=== PATIENT | female | born 1940 | race Caucasian/White ===

== ENCOUNTER 2017-02-19 13:42 | Emergency (ER) | payer MEDICARE ==
[2017-02-19 13:53] VITALS: BP 133/72; PULSE 83; RESP 16; TEMP 97
--- NOTE | 2017-02-19 14:21 | XR ---
EXAMINATION TYPE: XR knee complete RT DATE OF EXAM: 02/19/2017 2:17 PM CLINICAL HISTORY: pain TECHNIQUE: Three views of the right knee are obtained. COMPARISON: None. FINDINGS: There is no acute fracture/dislocation. The tri-compartment joint spaces appear moderatel y narrowed. Meniscal chondrocalcinosis noted. Mild spur formation seen. The overlying soft tissue fareed ears unremarkable. IMPRESSION: There is no acute fracture or dislocation.ICD 10 NO FRACTURE, INITIAL EVALUATION
--- NOTE | 2017-02-19 14:42 | ED ---
Fall HPI - General Chief Complaint: Fall Stated Complaint: Fall yesterday Rt knee and face Time Seen by Provider: 02/19/17 14:34 Source: patient, RN notes reviewed Mode of arrival: ambulatory - History of Present Illness Initial Comments: 76-year-old female presents emergency Department with chief complaint of fall. She states that she tripped over an uneven sidewalk. She states her is about a 2 inch elevation. She states she fell forward and has some abrasions to her hands but complaint of right knee pain, facial abrasion. Patient states she didn't bite her upper lip with her teeth but states she does not feel any loose dentition. She states that she had some minor bleeding. Her tetanus is up-to- date. Patient states she had very minimal pain of her nose denies any headache , dizziness, blurred vision. Denies any neck or back pain at this time. She states she has full range of motion of her wrist and minimally tender. Patient states it is very painful to walk on her right knee though. - Related Data Home Medications Medication Instructions Recorded Confirmed Aspirin [Adult Low Dose Aspirin EC] 81 mg PO DAILY 09/26/16 02/19/17 Atorvastatin [Lipitor] 20 mg PO DIRECTED 09/26/16 02/19/17 Cholecalciferol [Vitamin D3] 1,000 unit PO DAILY 09/26/16 02/19/17 Cyanocobalamin (Vitamin B-12) 2,000 mcg PO DAILY 09/26/16 02/19/17 [Vitamin B-12] Ibuprofen [Advil] 200 mg PO Q8HR PRN 09/26/16 02/19/17 Potassium Chloride [Klor-Con 20] 20 meq PO DIRECTED 09/26/16 02/19/17 Triamterene-Hctz 37.5-25Mg 1 cap PO DAILY 09/26/16 02/19/17 [Dyazide 37.5-25 Capsule] amLODIPine [Norvasc] 5 mg PO HS 09/26/16 02/19/17 Acetaminophen Tab [Tylenol Tab] 325 mg PO Q4H PRN 10/04/16 02/19/17 Allergies Allergy/AdvReac Type Severity Reaction Status Date / Time No Known Allergies Allergy Verified 02/19/17 13:53 Review of Systems ROS Statement: Those systems with pertinent positive or pertinent negative responses have been documented in the HPI. ROS Other: All systems not noted in ROS Statement are negative. Past Medical History Past Medical History: Hyperlipidemia, Hypertension, Osteoarthritis (OA), Sleep Apnea/CPAP/BIPAP History of Any Multi-Drug Resistant Organisms: None Reported Past Surgical History: Hysterectomy Additional Past Surgical History / Comment(s): Colonoscopy Past Anesthesia/Blood Transfusion Reactions: No Reported Reaction Past Psychological History: No Psychological Hx Reported Smoking Status: Never smoker Past Alcohol Use History: Rare Past Drug Use History: None Reported - Past Family History Father Family Medical History: Cancer General Exam Limitations: no limitations General appearance: alert, in no apparent distress Head exam: Present: atraumatic, normocephalic, normal inspection Eye exam: Present: normal appearance, PERRL, EOMI. Absent: scleral icterus, conjunctival injection, periorbital swelling ENT exam: Present: normal oropharynx, mucous membranes moist, TM's normal bilaterally, normal external ear exam. Absent: normal exam (Small abrasion noted on the nasal bridge with no tenderness) Neck exam: Present: normal inspection, full ROM. Absent: tenderness, meningismus, lymphadenopathy Respiratory exam: Present: normal lung sounds bilaterally. Absent: respiratory distress, wheezes, rales, rhonchi, stridor Cardiovascular Exam: Present: regular rate, normal rhythm, normal heart sounds. Absent: systolic murmur, diastolic murmur, rubs, gallop, clicks Extremities exam: Present: other (Bilateral wrists and hands neurovascular intact full range of motion minimal tenderness there is small abrasion noted no obvious deformity right knee there is tenderness along the patella and inferior to the patella with mild swelling no ecchymosis no abrasion patient full range of motion no laxity) Back exam: Present: full ROM. Absent: tenderness Neurological exam: Present: alert, oriented X3, CN II-XII intact, reflexes normal. Absent: motor sensory deficit Course Vital Signs 02/19/17 13:48 Temperature 97.0 F L Pulse Rate 83 Respiratory 16 Rate Blood Pressure 133/72 O2 Sat by Pulse 99 Oximetry Medical Decision Making - Medical Decision Making 76-year-old female presented for fall. Patient has no acute fracture or knee she had multiple contusions and abrasions. Patientto head injury. Patient be discharged at this time return parameters were discussed. Disposition Clinical Impression: Fall, Nasal contusion, Knee contusion, Abrasion hand Disposition: HOME SELF-CARE Condition: Stable Instructions: Contusion in Adults (ED) Additional Instructions: Please return to the Emergency Department if symptoms worsen or any other concerns. Referrals: Martina Perez DO [Primary Care Provider] - 1-2 days Time of Disposition: 14:41
== END 2017-02-19 14:47 | disposition home or self-care (01) ==
LOC: EC 13:42
DX: S80.01XA Contusion of right knee, initial encounter (principal); S00.33XA Contusion of nose, initial encounter; S60.512A Abrasion of left hand, initial encounter; S60.511A Abrasion of right hand, initial encounter; I10 Essential (primary) hypertension; E78.5 Hyperlipidemia, unspecified; M19.90 Unspecified osteoarthritis, unspecified site; Z79.82 Long term (current) use of aspirin; Z79.899 Other long term (current) drug therapy; W01.0XXA Fall on same level from slipping, tripping and stumbling without subsequent striking against object, initial encounter; Y92.480 Sidewalk as the place of occurrence of the external cause
CPT/HCPCS: 99283

== ENCOUNTER → 2017-10-03 | Outpatient (CLI) | payer MEDICARE ==
--- NOTE | 2017-10-04 13:34 | MM ---
Reason for exam: screening (asymptomatic). Last mammogram was performed 1 year ago. History: Patient is postmenopausal. Took hormonal contraceptives for 2 years. Physical Findings: A clinical breast exam by your physician is recommended on an annual basis and results should be correlated with mammographic findings. MG 3D Screening Mammo W/Cad Bilateral CC and MLO view(s) were taken. Prior study comparison: September 21, 2016, mammogram, performed at [facility]. September 19, 2015, mammogram, performed at [facility]. There are scattered fibroglandular densities. No suspicious abnormality. No significant changes when compared with prior studies. ASSESSMENT: Negative, BI-RAD 1 RECOMMENDATION: Routine screening mammogram of both breasts in 1 year.
== END | disposition home or self-care (01) ==
LOC: RADMAMWWP 12:23
PROVIDERS: ATTEND Family Medicine
DX: Z12.31 Encounter for screening mammogram for malignant neoplasm of breast (principal)
CPT/HCPCS: 77063; G0202

== ENCOUNTER → 2018-07-30 | Outpatient (CLI) | payer MEDICARE ==
--- NOTE | 2018-07-30 22:17 | MR ---
EXAMINATION TYPE: MR lumbar spine wo con DATE OF EXAM: 07/30/2018 COMPARISON: NONE HISTORY: Sciatica, unspecified side per order, pain in lower back and both legs x8 months per patient . TECHNIQUE: Multiplanar, multisequence imaging of the lumbar spine is performed without IV contrast. FINDINGS: Sagittal images of the lumbar spine show vertebral body heights and alignment to appear sat isfactory. Multilevel disc desiccation is present. There is multilevel moderate to advanced disc spac e narrowing. Multilevel small posterior disc herniations are seen on sagittal images. The conus medul jenni is normal in position and signal ending at mid L1 level. Heterogeneous predominantly Modic type II endplate changes with moderate multilevel anterior spurring is present, scattered small hemangiom as are also noted. Axial images at the T12-L1 level is felt to appear within normal limits. Axial images at L1-L2 level shows mild/moderate broad-based posterior disc protrusion mildly effacing the anterior thecal sac and causing moderate left and mild right-sided neural foraminal narrowing. Axial images at the L2-L3 level mild/moderate broad-based disc bulge mildly effacing the anterior the andrea sac and causing mild bilateral anterior inferior neural foraminal narrowing. Axial images at the L3-L4 level shows mild to moderate right greater than left facet degenerative ubaldo nge and ligament flavum hypertrophy with mild to moderate broad-based posterior disc protrusion mildl y effacing the anterior thecal sac and causing moderate to advanced right and mild to moderate left-s ided neural foraminal narrowing. Encroachment of right L3 nerve is suspected on axial image 14 and sa gittal image 11. Axial images at L4-L5 level shows moderate facet degenerative changes and ligamentum flavum hypertrop hy. There is prominence of epidural fat at this level. There is broad disc bulge with central disc pr otrusion seen. There is moderate to severe bilateral neural foraminal narrowing at this level noted. Axial images at L5-S1 level shows moderate facet degenerative changes bilaterally. There is broad-bas ed disc bulge seen but spinal canal is more prominent with diminished epidural fat. There is mild to moderate bilateral neural foraminal narrowing at this level. There are suspected prominent parapelvic cysts centrally in both kidneys and partial visualization of greater than 1 cm cystic lesion upper right pelvis axial image 2. IMPRESSION: 1. Multilevel degenerative changes in the lumbar spine as detailed above. Some epidural lipomatosis n oted lower lumbar levels. 2. Partial visualization of greater than 1 cm cystic upper right pelvis lesion presumed right ovarian in etiology, this is abnormal finding in postmenopausal female and further investigation with pelvic ultrasound is advised.
== END | disposition home or self-care (01) ==
LOC: RADMRIMAIN 15:01
PROVIDERS: ATTEND Family Medicine
DX: M48.061 Spinal stenosis, lumbar region without neurogenic claudication (principal); M99.73 Connective tissue and disc stenosis of intervertebral foramina of lumbar region; M99.74 Connective tissue and disc stenosis of intervertebral foramina of sacral region; M51.27 Other intervertebral disc displacement, lumbosacral region; M47.817 Spondylosis without myelopathy or radiculopathy, lumbosacral region
CPT/HCPCS: 72148

== ENCOUNTER → 2019-06-10 | Outpatient (CLI) | payer MEDICARE ==
--- NOTE | 2019-06-11 11:01 | MM ---
Reason for exam: screening (asymptomatic). Last mammogram was performed 1 year and 8 months ago. History: Patient is postmenopausal. Took hormonal contraceptives for 2 years. Physical Findings: A clinical breast exam by your physician is recommended on an annual basis and results should be correlated with mammographic findings. MG 3D Screening Mammo W/Cad Bilateral CC and MLO view(s) were taken. Prior study comparison: October 03, 2017, bilateral MG 3d screening mammo w/cad. September 21, 2016, mammogram, performed at [facility]. The breast tissue is heterogeneously dense. This may lower the sensitivity of mammography. Benign appearing bilateral calcifications. New 3mm group of calcifications 5.5cm from nipple in the central upper right breast at middle depth. No suspicious abnormality. ASSESSMENT: Incomplete: need additional imaging evaluation, BI-RAD 0 RECOMMENDATION: Special view mammogram of the right breast. [facility] will attempt to contact patient to return for supplemental views.
== END | disposition home or self-care (01) ==
LOC: RADMAMWWP 10:53
PROVIDERS: ATTEND Family Medicine
DX: Z12.31 Encounter for screening mammogram for malignant neoplasm of breast (principal)
CPT/HCPCS: 77063; 77067

== ENCOUNTER → 2019-06-26 | Outpatient (CLI) | payer MEDICARE ==
--- NOTE | 2019-06-29 09:39 | MM ---
Reason for exam: additional evaluation requested from abnormal screening. Last mammogram was performed 1 month ago. History: Patient is postmenopausal and history of other cancer. Took hormonal contraceptives for 2 years. Physical Findings: Nurse did not find any significant physical abnormalities on exam. MG 3D Work Up W/Cad RT CC with magnification, LM with magnification, and LM view(s) were taken of the right breast. Prior study comparison: June 10, 2019, bilateral MG 3d screening mammo w/cad. October 03, 2017, bilateral MG 3d screening mammo w/cad. Finding: There are grouped/clustered, fine calcifications in the middle position of the right breast. New finding since October 03, 2017. These results were verbally communicated with the patient and result sheet given to the patient on 06/26/19. ASSESSMENT: Suspicious, BI-RAD 4 RECOMMENDATION: Stereotactic core biopsy of the right breast. Called Dr. Perez with mammographic findings and has scheduled an appointment for the patient for 07/23/19 at 4:[address] Bourgeois. Biopsy scheduled for 08/06/19 at 8:00. PRELIMINARY REPORT CALLED AND FAXED TO DR. BOURGEOIS ON 06/26/19.
== END | disposition home or self-care (01) ==
LOC: RADMAMWWP 14:56
PROVIDERS: ATTEND Family Medicine
DX: R92.8 Other abnormal and inconclusive findings on diagnostic imaging of breast (principal)
CPT/HCPCS: 77065; G0279; 77061

== ENCOUNTER → 2019-07-23 | Outpatient (CLI) | payer MEDICARE ==
[2019-07-23 16:04] VITALS: BP 119/72; PULSE 87; RESP 18; TEMP 97.9; BMI 32.8
--- NOTE | 2019-07-23 16:30 | P.GSHP ---
History of Present Illness H&P Date: 07/23/19 Chief Complaint: mammographic abnormality right breast Blanca is a 79-year-old white female who had a routine screening mammogram performed on 9419. She was called back to have additional views [place] [address]. A group of fine calcifications in the middle position of the right breast were noted. These were felt to be suspicious and stereotactic core biopsy was recommended. The patient does not feel anything of concern in her breasts. She has no history of any trauma or infection in the breast. She has no complaints of any lumps or masses in her breasts. No abnormal nipple discharge. Family history: 1. father: skin melanoma and bony cancer 2. patient: skin cancer, basal and SCC 3. maternal cousin: breast cancer Hormonal History: menarche: 14 , 1 miscarriage breast fed: none age at first : 20 menopause: hysterectomy left one ovary, no cancer BCP: 4 years hormones: 2 years Surgical history: 1. Hysterectomy 1 ovary removed one left medical history: 1. HTN 2. high cholesterol 3. arthritis Social history: Smoke: Negative: Alcohol: Occasional Drugs: Negative - Constitutional Constitutional: Denies chills, Denies fever - EENT Comment: wears glasses Ears: deny: decreased hearing, tinnitus Ears, nose, mouth and throat: Denies headache, Denies sore throat - Breasts Breasts: bilateral: as per HPI - Cardiovascular Cardiovascular: Reports high blood pressure, Denies chest pain, Denies shortness of breath - Respiratory Respiratory: Denies cough, Denies 7 - Gastrointestinal Gastrointestinal: Denies abdominal pain, Denies diarrhea, Denies nausea, Denies vomiting - Genitourinary (Female) Genitourinary: Denies dysuria, Denies hematuria - Menstruation Menstruation: Reports post hysterectomy - Musculoskeletal Comment: arthritis - Integumentary Integumentary: Denies pruritus, Denies rash - Neurological Neurological: Denies numbness, Denies weakness - Psychiatric Psychiatric: Denies anxiety, Denies depression - Endocrine Endocrine: Denies fatigue, Denies weight change - Hematologic/Lymphatic Comment: baby aspirin - Allergic/Immunologic Allergic/Immunologic: Reports as per HPI Past Medical History Past Medical History: Hyperlipidemia, Hypertension, Osteoarthritis (OA), Sleep Apnea/CPAP/BIPAP History of Any Multi-Drug Resistant Organisms: None Reported Past Surgical History: Hysterectomy Additional Past Surgical History / Comment(s): Colonoscopy Past Anesthesia/Blood Transfusion Reactions: No Reported Reaction Past Psychological History: No Psychological Hx Reported Smoking Status: Never smoker Past Alcohol Use History: Rare Past Drug Use History: None Reported - Past Family History Father Family Medical History: Cancer Medications and Allergies Home Medications Medication Instructions Recorded Confirmed Type Aspirin [Adult Low Dose Aspirin EC] 81 mg PO DAILY 09/26/16 07/23/19 History Atorvastatin [Lipitor] 20 mg PO DIRECTED 09/26/16 07/23/19 History Cholecalciferol [Vitamin D3] 1,000 unit PO DAILY 09/26/16 07/23/19 History Cyanocobalamin (Vitamin B-12) 2,000 mcg PO DAILY 09/26/16 07/23/19 History [Vitamin B-12] Ibuprofen [Advil] 200 mg PO Q8HR PRN 09/26/16 07/23/19 History Potassium Chloride [Klor-Con 20] 20 meq PO DIRECTED 09/26/16 07/23/19 History amLODIPine [Norvasc] 10 mg PO HS 09/26/16 07/23/19 History Acetaminophen Tab [Tylenol Tab] 325 mg PO Q4H PRN 10/04/16 07/23/19 History Amoxicillin 500 mg PO QID 07/23/19 07/23/19 History Losartan/Hydrochlorothiazide 1 tab PO DAILY 07/23/19 07/23/19 History [Losartan-Hctz 100-25 mg Tab] Allergies Allergy/AdvReac Type Severity Reaction Status Date / Time No Known Allergies Allergy Verified 07/23/19 16:03 Surgical - Exam Vital Signs Temp Pulse Resp BP Pulse Ox 97.9 F 87 18 119/72 95 07/23/19 16:00 07/23/19 16:00 07/23/19 16:00 07/23/19 16:00 07/23/19 16:00 BMI 32.9 - General well developed, well nourished, no distress - Eyes normal ocular movement, no icteric - ENT no hearing loss, no congestion - Neck no masses, trachea midline - Respiratory normal expansion, normal respiratory effort, clear to auscultation - Cardiovascular Rhythm: regular Heart Sounds: normal: S1, S2 - Abdomen Abdomen: soft, non tender, no guarding, no rigid, no rebound - Integumentary ormal turgor - Neurologic no disoriented, no combative - Musculoskeletal normal gait, normal posture - Psychiatric oriented to time, oriented to person, oriented to place, speech is normal, memory intact Breast examination: Right breast: Multi-positional exam fibrocystic changes no dominant masses or nodules of concern Right axilla: No adenopathy of concern Left breast: Multiple positional exam no dominant masses or nodules of concern Left axilla: No adenopathy of concern Results Mammogram results reviewed Assessment and Plan Assessment: Impression: 1. HTN 2. high cholesterol 3. arthritis 4. Fibrocystic breast changes 5. Mammographic abnormality right breast 6. Family history of breast cancer 7. Family history of cancer Plan: 1. Stereotactic core biopsy right breast 2. Medical management of medical conditions Blanca had an infection near a left posterior molar. She has been seen by a dentist lanced it and put on an antibiotic. She states she is going for suture removal next week and she will be completed with her antibiotics. We have talked about if this is active infection would consider postponing the core biopsy. Additionally we have talked about stopping her baby aspirin which she will do a week prior to the procedure. Risks and benefits of procedure discussed with the patient and she wishes to proceed. Cc:Dr. Perez
== END | disposition home or self-care (01) ==
LOC: WWCWWP 15:52
PROVIDERS: ATTEND Surgery
DX: Z53.9 Procedure and treatment not carried out, unspecified reason (principal)

== ENCOUNTER → 2019-08-06 | Day surgery (SDC) | payer MEDICARE ==
[2019-08-06 07:24] VITALS: RESP 16; BMI 32.3
--- NOTE | 2019-08-06 08:32 | P.OP ---
Date of Procedure: 08/06/19 Preoperative Diagnosis: Mammographic abnormality right breast Postoperative Diagnosis: same Procedure(s) Performed: Right breast stereotactic core biopsy Anesthesia: local Surgeon: Siria Delaney Estimated Blood Loss (ml): 0.02 Pathology: other (Breast tissue) Condition: stable Disposition: same day Indications for Procedure: right breast grouped clustered fine calcifications in the middle position Operative Findings: Calcifications noted in specimen Description of Procedure: The patient is a 79-year-old white female who on a mammogram was noted to have fine group/clustered calcifications in the middle position of the right breast. The patient was recommended to undergo stereotactic core biopsy. Risks and benefits of the procedure were discussed with the patient and she wished to proceed. The patient was taken to the stereotactic core room. She was positioned on the low. Table and a showcase trimmer film was obtained. The views were obtained in the CC from above position. The area of concern was identified. The patient was targeted. The breast was prepped using Betadine. 20 mL of 1% lidocaine were used to anesthetize the area. Needle which was a 9-gauge vacuum-assisted core biopsy needle was driven to the correct coordinates. The needle was fired. Post fire films were obtained. The needle was noted to be in the correct location. 5 core biopsies were obtained. The 12 o'clock position. Radiograph of the specimen revealed that the area of concern had been sampled with calcifications in the specimen. A Top-Hat secure kait clip was placed for localization. The patient tolerated the procedure in stable condition. The specimen was sent to pathology. Cc: Dr. Martina Perez
[2019-08-06 08:34] VITALS: BP 131/71; PULSE 59; TEMP 98.1
--- NOTE | 2019-08-06 16:32 | MM ---
EXAMINATION TYPE: MG stereo VAD BX RT DATE OF EXAM: 08/06/2019 COMPARISON: 06/10/2019 and 06/26/2019 CLINICAL HISTORY: 79-year-old female with right breast microcalcifications TECHNIQUE: Stereotactic guided core biopsy of the right breast. FINDINGS: The procedure of stereotactic guided core biopsy was explained to the patient. Benefits, alternatives, and risks were discussed. An informed consent was then obtained. The shortness pathway for biopsy was chosen. Shortness pathway was a superior approach. I performed the localization, then surgeon, Dr. Jose Armando Romero performed the remainder of the procedure. A vacuum assisted biopsy gun was used to obtain multiple core samples. The patient tolerated the procedure well without any immediate complication. The patient was kept in the radiology department for short stay after the procedure and then discharged home in stable condition. Targeted calcifications are identified in specimen mammogram. Post biopsy mammogram shows the clip to appear in satisfactory position relative to the targeted area of concern on the preprocedure images. IMPRESSION: SUCCESSFUL, UNCOMPLICATED STEREOTACTIC GUIDED CORE BIOPSY OF CENTRAL 12:00 RIGHT BREAST MICROCALCIFICATIONS. LOW TO INTERMEDIATE SUSPICION. FULL PATHOLOGY RESULTS TO FOLLOW. Pathology Results: Benign RIGHT BREAST, STEREOTACTIC NEEDLE CORE BIOPSY: Fibrocystic changes including cysts with intraluminal calcium oxalate crystals and fibrosis. Recommendation Follow up mammogram of the right breast in 6 months. AIMEE
== END | disposition home or self-care (01) ==
LOC: RADMAMWWP 07:01
PROVIDERS: ATTEND Surgery
DX: N60.11 Diffuse cystic mastopathy of right breast (principal)
CPT/HCPCS: 88305; 19081; A4648; J2001

== ENCOUNTER → 2019-08-21 | Outpatient (CLI) | payer MEDICARE ==
[2019-08-21 10:48] VITALS: BP 126/68; PULSE 62; RESP 18; TEMP 97.6; BMI 31.8
--- NOTE | 2019-08-21 10:59 | P.PN ---
Subjective Progress Note Date: 08/21/19 Principal diagnosis: results of sterocore biopsy The patient is a 79-year-old white female status post a right stereotactic core biopsy on 103 119. Pathology revealed fibrocystic changes including cyst with intraluminal calcium crystals and fibrosis. It was felt that this was concordant with the area of concern. The patient post procedure has no complaints. She is doing well. Objective - Vital Signs Vital signs: Vital Signs Temp 97.6 F 08/21/19 10:46 Pulse 62 08/21/19 10:46 Resp 18 08/21/19 10:46 BP 126/68 08/21/19 10:46 Pulse Ox 97 08/21/19 10:46 Intake & Output 08/20/19 08/21/19 08/21/19 18:59 06:59 18:59 Weight 78.925 kg - Exam BMI 31.8 - Constitutional General appearance: Present: obese - EENT Eyes: Present: EOMI ENT: Present: hearing grossly normal - Neck Neck: Present: normal ROM - Respiratory Respiratory: bilateral: CTA - Cardiovascular Rhythm: regular Heart sounds: normal: S1, S2 - Integumentary Integumentary: Present: normal turgor - Musculoskeletal Musculoskeletal: Present: gait normal - Psychiatric Psychiatric: Present: A&O x's 3, appropriate affect - Additional findings Additional findings: Right breast biopsy site clean and dry No evidence of infection No ecchymosis or hematoma Assessment and Plan Assessment: Impression: 1. Patient status post right breast stereotactic core biopsy pathology benign this is concordant Plan: 1. Right breast mammogram in 6 months time with physician exam at that time 2. Will follow with bilateral mammogram and normal interval which would be June 2020. CC: Dr. Perez
== END ==
LOC: WWCWWP 10:35
PROVIDERS: ATTEND Surgery
DX: Z53.9 Procedure and treatment not carried out, unspecified reason (principal)

== ENCOUNTER → 2019-09-19 | Outpatient (CLI) | payer MEDICARE ==
[2019-09-19 11:00] LABS: HCT 40.3 % (34.0-46.0); HGB 13.1 gm/dL (11.4-16.0); MCH 31.1 pg (25.0-35.0); MCHC 32.6 g/dL (31.0-37.0); MCV 95.6 fL (80.0-100.0); Mean Platelet Volume 6.7; Platelet Count 299 k/uL (150-450); RBC 4.22 m/uL (3.80-5.40); RDW 12.6 % (11.5-15.5); WBC 5.9 k/uL (3.8-10.6)
[2019-09-19 12:54] LABS: Erythrocyte Sedimentation Rate 12 mm/hr (0-20)
[2019-09-19 17:24] LABS: African American GFR (CKD) 96.2 (60.0-200.0); Albumin 4.1 g/dL (3.80-4.90); Albumin/Globulin Ratio 2.05 (1.60-3.17); Anion Gap 10.4 mmol/L (4.00-12.00); C Reactive Protein 0.6 mg/dL (0.0-0.8); Calcium 9.5 mg/dL (8.7-10.3); Carbon Dioxide 26.6 mmol/L (21.6-31.8); Potassium 4.1 mmol/L (3.5-5.5); Total Bilirubin 0.6 mg/dL (0.3-1.2); Total Protein 6.1 g/dL (6.2-8.2)
[2019-09-21 11:02] LABS: Gliadin AB IgA, Deaminated NEGATIVE (NEGATIVE); Gliadin AB IgA, Unit <0.2 U/mL; Gliadin AB IgG, Deaminated NEGATIVE (NEGATIVE)
== END | disposition home or self-care (01) ==
LOC: LABWHC1 10:27
PROVIDERS: ATTEND Nurse Practitioner
DX: K52.9 Noninfective gastroenteritis and colitis, unspecified (principal)
CPT/HCPCS: 36415; 80053; 83516; 83630; 83993; 85027; 85652; 86140; 87045; 87046; 87328; 87329

== ENCOUNTER → 2020-06-27 | Outpatient (CLI) | payer MEDICARE ==
--- NOTE | 2020-06-27 13:59 | MM ---
Reason for exam: additional evaluation requested from prior study. Last mammogram was performed 1 year ago. History: Patient is postmenopausal and history of other cancer. Benign MG stereo VAD BX RT of the right breast, August 06, 2019. Took hormonal contraceptives for 2 years. Physical Findings: Nurse did not find any significant physical abnormalities on exam. MG 3D Diag Mammo W/Cad GENNY Bilateral CC and MLO view(s) were taken. Prior study comparison: June 26, 2019, right breast MG 3d work up w/cad RT. June 10, 2019, bilateral MG 3d screening mammo w/cad. There are scattered fibroglandular densities. Previous mammotome biopsy in the right breast. There is chronic nodularity in the left breast anterior superior position. Stable benign vascular calcifications. Subareolar asymmetric density left MLO view disperses on spot 3D. No significant new findings when compared with previous films. These results were verbally communicated with the patient and result sheet given to the patient on 06/27/20. ASSESSMENT: Negative, BI-RAD 1 RECOMMENDATION: Routine screening mammogram of both breasts in 1 year.
== END | disposition home or self-care (01) ==
LOC: RADMAMWWP 12:52
PROVIDERS: ATTEND Surgery
DX: R92.8 Other abnormal and inconclusive findings on diagnostic imaging of breast (principal)
CPT/HCPCS: 77066; G0279; 77062

== ENCOUNTER 2021-01-19 12:54 | Day surgery (SDC) | payer MEDICARE ==
[2021-01-19] MEDS ORDERED: ALPRAZolam 0.25 MG TAB PO PRN (13:16)
[2021-01-19 13:36] VITALS: PULSE 78; TEMP 97.7
[2021-01-19 14:45] VITALS: BP 123/66; RESP 18
--- NOTE | 2021-01-19 15:01 | US ---
EXAMINATION TYPE: US FNA thyroid first lesion DATE OF EXAM: 01/19/2021 COMPARISON: NONE HISTORY: Thyroid nodule right lobe thyroid gland. Maximal barrier technique was utilized. After informed consent, skin overlying the lobe thyroid nodu le was localized with ultrasound and the overlying skin prepped and draped. Ultrasound was utilized u sing sterile technique. Lidocaine was used for local anesthesia. Five passes with a 25-gauge needle were made into the nodule and aspirated specimen was submitted to cytology. Following the procedure hemostasis achieved. No immediate complication. The patient discharged in stable condition. IMPRESSION: STATUS POST ULTRASOUND GUIDED FINE NEEDLE ASPIRATION OF THYROID NODULE, PATHOLOGY IS PEND ING. THIS PROCEDURE WAS PERFORMED BY THE UNDERSIGNED.
== END 2021-01-19 15:01 | disposition home or self-care (01) ==
LOC: RADPROMAIN 12:54
PROVIDERS: ATTEND Family Medicine
DX: E04.1 Nontoxic single thyroid nodule (principal)
CPT/HCPCS: 10005; 88173; 88305

== ENCOUNTER → 2021-07-18 | Outpatient (CLI) | payer MEDICARE ==
--- NOTE | 2021-07-20 13:31 | MM ---
Reason for exam: screening (asymptomatic). Last mammogram was performed 1 year and 1 month ago. History: Patient is postmenopausal and history of other cancer. Benign MG stereo VAD BX RT of the right breast, August 06, 2019. Took hormonal contraceptives for 2 years. Physical Findings: A clinical breast exam by your physician is recommended on an annual basis and results should be correlated with mammographic findings. MG 3D Screening Mammo W/Cad Bilateral CC and MLO view(s) were taken. Prior study comparison: June 27, 2020, bilateral MG 3d diag mammo w/cad [facility]. June 10, 2019, bilateral MG 3d screening mammo w/cad. October 03, 2017, bilateral MG 3d screening mammo w/cad. There are scattered fibroglandular densities. There are benign appearing vascular calcifications bilaterally. No significant changes when compared with prior studies. ASSESSMENT: Benign, BI-RAD 2 RECOMMENDATION: Routine screening mammogram of both breasts in 1 year.
== END | disposition home or self-care (01) ==
LOC: RADMAMWWP 14:56
PROVIDERS: ATTEND Family Medicine
DX: Z12.31 Encounter for screening mammogram for malignant neoplasm of breast (principal); Z78.0 Asymptomatic menopausal state
CPT/HCPCS: 77063; 77067

== ENCOUNTER → 2022-07-19 | Outpatient (CLI) | payer MEDICARE ==
--- NOTE | 2022-07-20 16:15 | MM ---
Reason for Exam: Screening (asymptomatic). Last screening mammogram was performed 12 month(s) ago. Patient History: Menarche at age 14. First Full-Term at age 19. Left ovary removed at age 32. Hysterectomy at age 32. Postmenopausal. Other cancer. Patient used Hormonal Contraceptives for 2 years. Unspecified Hormone, from age 39 until age 46. 08/06/2019, Benign Core Biopsy on the right side. Paternal cousin had breast cancer, age 60. Maternal cousin had breast cancer, age 60. Daughter had breast cancer, age 56. Risk Values: Oralia 5 year model risk: 3.5%. NCI Lifetime model risk: 5.1%. Prior Study Comparison: 06/26/2019 Right Diagnostic Mammogram, [facility]. 06/27/2020 Bilateral Diagnostic Mammogram, [facility]. 07/18/2021 Bilateral Screening Mammogram, [facility]. Tissue Density: The breast tissue is heterogeneously dense. This may lower the sensitivity of mammography. Findings: Analyzed By CAD. Pattern appears symmetrical. Benign vascular calcification is present bilaterally. A core marker is within the right breast. No suspicious groups of microcalcifications, spiculated or lobular masses, architectural distortion or other secondary signs of malignancy are mammographically apparent. Overall Assessment: Benign, BI-RAD 2 Management: Screening Mammogram of both breasts in 1 year. A negative mammogram report should not preclude additional follow up of suspicious palpable abnormalities. Patient should continue monthly self breast exam. A clinical breast exam by your physician is recommended on an annual basis and results should be correlated with mammographic findings. Electronically signed and approved by: Cm Patrick D.O. Radiologis
== END | disposition home or self-care (01) ==
LOC: RADMAMWWP 10:43
PROVIDERS: ATTEND Family Medicine
DX: Z12.31 Encounter for screening mammogram for malignant neoplasm of breast (principal); Z78.0 Asymptomatic menopausal state; Z80.3 Family history of malignant neoplasm of breast
CPT/HCPCS: 77063; 77067

== ENCOUNTER → 2023-07-23 | Outpatient (CLI) | payer MEDICARE ==
--- NOTE | 2023-07-24 19:14 | MM ---
Reason for Exam: Screening (asymptomatic). Last screening mammogram was performed 12 month(s) ago. Patient History: Menarche at age 14. First Full-Term at age 19. Left ovary removed at age 32. Hysterectomy at age 32. Postmenopausal. Patient used Hormonal Contraceptives for 2 years. Unspecified Hormone, from age 39 until age 46. 08/06/2019, Benign Core Biopsy on the right side. Paternal cousin had breast cancer, age 60. Maternal cousin had breast cancer, age 60. Daughter had breast cancer, age 56. Risk Values: Oralia 5 year model risk: 3.4%. NCI Lifetime model risk: 4.6%. Prior Study Comparison: 06/27/2020 Bilateral Diagnostic Mammogram, [facility]. 07/18/2021 Bilateral Screening Mammogram, [facility]. 07/19/2022 Bilateral MG 3D screening mammo w/cad, [facility]. Tissue Density: There are scattered fibroglandular densities. Findings: Analyzed By CAD. Microclip right breast from prior biopsy. Benign bilateral vascular calcifications redemonstrated. There is no suspicious group of microcalcifications or new suspicious mass in either breast. Overall Assessment: Benign, BI-RAD 2 Management: Screening Mammogram of both breasts in 1 year. See note below in regards to patient's increased five-year Oralia score. Patient should continue monthly self-breast exams. A clinical breast exam by your physician is recommended on an annual basis. This exam should not preclude additional follow-up of suspicious palpable abnormalities. Note on Oralia scores and lifetime risk: 1. A Oralia score greater than 3% is considered moderate risk. If this is the case, consider specialist referral to assess eligibility for a risk reducing agent. 2. If overall lifetime risk for the development of breast cancer is 20% or higher, the patient may qualify for future screening with alternating mammogram and breast MRI. Electronically signed and approved by: Sundeep Acharya M.D. Radiologist
== END | disposition home or self-care (01) ==
LOC: RADMAMWWP 10:51
PROVIDERS: ATTEND Family Medicine
DX: Z12.31 Encounter for screening mammogram for malignant neoplasm of breast (principal); Z80.3 Family history of malignant neoplasm of breast; Z78.0 Asymptomatic menopausal state
CPT/HCPCS: 77063; 77067

== ENCOUNTER → 2023-08-13 | Outpatient (CLI) | payer MEDICARE ==
[2023-08-13 15:51] LABS: African American GFR (CKD) >90 (>60 ml/min/1.73 sqM); Blood Urea Nitrogen 15 mg/dL (7-17); Non-African American GFR(CKD) 86 (>60 ml/min/1.73 sqM)
--- NOTE | 2023-08-14 09:14 | CT ---
EXAMINATION TYPE: CT chest w con DATE OF EXAM: 08/13/2023 COMPARISON: None HISTORY: States that she has an thoracic aneurysm CT DLP: 393.9 mGycm Automated exposure control for dose reduction was used. TECHNIQUE: CT scan of the chest is performed with IV Contrast, patient injected with 100 cc mL of Isovue 300. M IP Images are created on CT scanner and reviewed. 3D reconstructed images are created on an [employer] workstation and reviewed. FINDINGS: LUNGS: The lungs are grossly clear, there is no concerning parenchymal mass or nodule identified. T here is no pleural effusion or pneumothorax seen. The tracheobronchial tree is patent. Subsegmental changes of atelectasis. There is subpleural micronodules measuring 3 mm or less bilaterally most like ly on the basis of benign nodules. MEDIASTINUM: There are no greater than 1 cm hilar or mediastinal lymph nodes. No pericardial effusi on is seen. Coronary artery calcification. Atherosclerotic changes aorta with no evidence of aneurys m. Aorta measures a maximal dimension of 3.5 cm. There is calcification of the aortic valve. OTHER: There is a right lobe thyroid nodule measuring 1.1 cm. There is a fluid attenuation near the right shoulder joint possibly within the bursa. Severe arthropathy of the glenohumeral joints bilater ally. Small hiatal hernia. Bilateral parapelvic renal cysts and simple exophytic 1.2 cm left renal cy [address]. Hypertrophic and degenerative changes of the spine. 3 mm upper pole left renal calculus. IMPRESSION: 1. There is calcification the aortic valve and mild atherosclerotic change of the aorta. No evidence of aneurysm. 2. Coronary artery calcifications. 3. Subpleural micronodules have a benign appearance could be followed twelve-month low-dose CT scan a s clinically warranted. 4. 1.1 cm right thyroid nodule. 5. Severe bilateral glenohumeral joint arthropathy with cystic fluid attenuation along the medial mar gin of the right shoulder. Possibly related to a large bursal fluid collection. Correlate clinically. 6. 3 mm upper pole left renal calculus.
== END | disposition home or self-care (01) ==
LOC: RADCTMAIN 14:59
PROVIDERS: ATTEND Family Medicine
DX: I71.20 Thoracic aortic aneurysm, without rupture, unspecified (principal); I70.0 Atherosclerosis of aorta; I25.10 Atherosclerotic heart disease of native coronary artery without angina pectoris; E04.1 Nontoxic single thyroid nodule; M19.011 Primary osteoarthritis, right shoulder; M19.012 Primary osteoarthritis, left shoulder; N20.0 Calculus of kidney; R91.8 Other nonspecific abnormal finding of lung field
CPT/HCPCS: 82565; 84520; 71260; 36415; Q9967

== ENCOUNTER → 2023-08-28 | Outpatient (CLI) | payer MEDICARE ==
[2023-08-28 21:35] LABS: Rheumatoid Factor, Qnt <15 IU/mL (0-15); T4, Free (Free Thyroxine) 1.21 ng/dL (0.80-1.80); Uric Acid 3.6 mg/dL (2.9-7.7)
== END | disposition home or self-care (01) ==
LOC: LABWHC1 13:39
PROVIDERS: ATTEND Family Medicine
DX: Z13.6 Encounter for screening for cardiovascular disorders (principal); E07.9 Disorder of thyroid, unspecified; M81.0 Age-related osteoporosis without current pathological fracture
CPT/HCPCS: 36415; 82306; 82533; 82626; 83090; 84439; 84443; 84481; 84550; 86001; 86038; 86141; 86431

== ENCOUNTER → 2024-01-24 | Outpatient (CLI) | payer MEDICARE ==
[~2024-01-24] MED LIST: REGADENOSON 0.4 MG/5 ML SYRINGE IV PRN
--- NOTE | 2024-01-24 11:10 | CA ---
Lexiscan Nuclear Stress Test Report Name: Blanca Valdes Exam Date: 01/24/2024 10:36 Exam Location: [facility] Ht (in): 61 Wt (lb): 158 BSA: 1.71 Ordering Phys: Martina Perez DO Referring Phys: COLE Technologist: Nick Murray Age: 83 Gender: F : 1940 Procedure CPT: Indications: R06.00 Dyspnea ICD-10 Codes: Patient History: HTN, HYPERCHOLESTEROLEMIA, FAMILY HX OF HEART DISEASE Medications: CRESTOR, NORVASC, ASA, LOSARTAN, HZTZ, VIT B12, POTASSIUM, MELOXICAM Meds past 24 hrs: Pretest Chest Pain: STRESS TEST Lexiscan Protocol Exercise Duration (min:sec): 02:[address] Depressions (mm): Angina Score: Fisher Score: Resting HR (bpm): 66 Peak HR (bpm): 102 Resting BP (mmHg): 120 / 58 Peak BP (mmHg): 149 / 54 MPHR: 138 Target HR: 117 % MPHR: 74 METS: 1.0 Total Dose: Peak Dose: Atropine: Double Product: 94058 BP Response: Stress Termination: INFUSION COMPLETE Stress Symptoms: TREASURE Stress Summary: ECG ANALYSIS Resting ECG: Normal sinus rhythm normal axis normal intervals Stress ECG: Patient received Lexiscan as a protocol did not have chest pain or diagnostic ST segment depression CONCLUSIONS Negative stress test by EKG criteria Cardiolite portion of the stress test will be reported separately Dr. Alvaro Belle MD (Electronically Signed) Final Date: 24 January 2024 11:09
--- NOTE | 2024-01-24 13:18 | NM ---
EXAMINATION TYPE: NM stress lexiscan cardiolite DATE OF EXAM: 01/24/2024 COMPARISON: NONE CLINICAL INDICATION: Female, 83 years old with history of R06.00 DYSPNEA; TECHNIQUE: After the intravenous administration of 9.9 mCi Tc 99m Sestamibi - Cardiolite resting SPE CT images acquired 70 minutes post injection. The patient received 0.4mg Lexiscan, 25.8 mCi Tc 99m Sestamibi - Stress images obtained [address] injection FINDINGS: Review of stress and rest SPECT images demonstrates fixed perfusion defect along the inferolateral wa ll. While SPECT images show a similar appearance, color map suggests some associated reversibility in this region. Gated analysis shows normal wall motion with an estimated left ventricular ejection fra ction of 85 %. TID calculated normal at 0.81, within normal limits. IMPRESSION: Fixed defect involving the inferolateral wall, either attenuation artifact or old infarct. Visually, rest and stress SPECT images appear similar despite polar map indicating some reversibility in this r egion. Further evaluation as clinically indicated.
== END | disposition home or self-care (01) ==
LOC: RADNMMAIN 08:48
PROVIDERS: ATTEND Family Medicine
DX: R06.00 Dyspnea, unspecified (principal)
CPT/HCPCS: 93017; 78452; A9500; J2785

== ENCOUNTER → 2024-07-24 | Outpatient (CLI) | payer MEDICARE ==
--- NOTE | 2024-07-28 18:40 | MM ---
Reason for Exam: Screening (asymptomatic). Last screening mammogram was performed 12 month(s) ago. Patient History: Menarche at age 14. First Full-Term at age 19. Left ovary removed at age 32. Hysterectomy at age 32. Postmenopausal. Patient used Hormonal Contraceptives for 2 years. Unspecified Hormone, from age 39 until age 46. 08/06/2019, Benign Core Biopsy on the right side. Paternal cousin had breast cancer, age 60. Maternal cousin had breast cancer, age 60. Daughter had breast cancer, age 56. Risk Values: Oralia 5 year model risk: 3.3%. NCI Lifetime model risk: 4.0%. Prior Study Comparison: 07/18/2021 Bilateral Screening Mammogram, [facility]. 07/19/2022 Bilateral MG 3D screening mammo w/cad, [facility]. 07/23/2023 Bilateral MG 3D screening mammo w/cad, [facility]. Tissue Density: There are scattered areas of fibroglandular density. Findings: Analyzed By CAD. Benign bilateral vascular calcifications. Microclip right breast from prior biopsy. Some grouped 12:00 left breast microcalcifications remain unchanged. There is no suspicious group of microcalcifications or new suspicious mass in either breast. Overall Assessment: Benign, BI-RAD 2 Management: Screening Mammogram of both breasts in 1 year. See note below in regards to the patient's increased 5 year Oralia score. Patient should continue monthly self-breast exams. A clinical breast exam by your physician is recommended on an annual basis. This exam should not preclude additional follow-up of suspicious palpable abnormalities. Note on Oralia scores and lifetime risk: 1. A Oralia score greater than 3% is considered moderate risk. If this is the case, consider specialist referral to assess eligibility for a risk reducing agent. 2. If overall lifetime risk for the development of breast cancer is 20% or higher, the patient may qualify for future screening with alternating mammogram and breast MRI. [facility], , 07/28/2024 6:36 PM. Electronically signed and approved by: Sundeep Acharya M.D. Radiologist
== END | disposition home or self-care (01) ==
LOC: RADMAMWWP 10:30
PROVIDERS: ATTEND Family Medicine
DX: Z12.31 Encounter for screening mammogram for malignant neoplasm of breast (principal); Z78.0 Asymptomatic menopausal state; Z80.3 Family history of malignant neoplasm of breast; R92.323 Mammographic fibroglandular density, bilateral breasts; R92.0 Mammographic microcalcification found on diagnostic imaging of breast
CPT/HCPCS: 77063; 77067